=== PATIENT | female | born 1990 | race Caucasian/White ===

== ENCOUNTER 2018-04-09 03:16 | Emergency (ER) | payer SELFPAY ==
--- NOTE | 2018-04-09 03:20 | EDM.PDOC ---
ED HPI GENERAL MEDICAL PROBLEM - General Stated Complaint: ABDOMINAL PAIN Time Seen by Provider: 04/09/18 03:31 - History of Present Illness INITIAL COMMENTS - FREE TEXT/NARRATIVE: HISTORY AND PHYSICAL: History of present illness: The patient is a 27-year-old female with a history of chronic lower back pain and back surgery, bilateral tubal ligation and a right ovariectomy who presents with complaints of concerns about having a gallbladder attack this morning. The patient was seen by me on March 05 and had a workup consisting of labs including H. pylori and a CT scan of the abdomen and pelvis. Her CT showed colonic retention as well as cholelithiasis with mild gallbladder wall thickening. She was referred to our surgery clinic and seen by Dr. Jain who did an outpatient ultrasound also revealing cholelithiasis but no other gallbladder abnormalities. The patient was scheduled for surgery to remove the gallbladder on April 02 she tells me that she could not make that appointment and has to reschedule that. She presents this morning with complaints of right upper quadrant pain that radiates to her chest. She says this feels somewhat different than her prior gallbladder attack and she says that she has not had much pain at all since she was seen here the beginning of February. She has tramadol to use for pain and she did take a dose of that when the pain started at 2 AM but is not totally relieves the pain. The patient says that yesterday she had a normal day with no systemic complaints such as fever chills chest pain shortness of breath abdominal pain vomiting or diarrhea she's been having normal bowel movements. She says she has been very good about watching her diet but at 9 PM last evening she did have doubled legs made with miracle whip as well as food with heavy cream. Her pain started at 2 AM and it is not associated with nausea or vomiting. She is not short of breath and she has not had a fever. What she tells me her surgery was scheduled and had a few postponed because her boyfriend was involved in an accident and it is now currently scheduled for later this month. Review of systems: As per history of present illness and below otherwise all systems reviewed and negative. Past medical history: As per history of present illness and as reviewed below otherwise noncontributory. Surgical history: As per history of present illness and as reviewed below otherwise noncontributory. Social history: No reported history of drug or alcohol abuse. Family history: As per history of present illness and as reviewed below otherwise noncontributory. Physical exam: General: Well-developed well-nourished female who is nontoxic and vital signs are noted by me. Patient is rubbing her right upper quadrant on my evaluation but she is cooperative and moves easily in the bed. HEENT: Atraumatic, normocephalic, , negative for conjunctival pallor or scleral icterus, mucous membranes moist, throat clear, neck supple, nontender, trachea midline. Lungs: Clear to auscultation, breath sounds equal bilaterally, chest nontender. Heart: S1S2, regular rate and rhythm no overt murmurs Abdomen: Soft, nondistended, there is mild tenderness on palpation in the right upper quadrant without rebound or guarding and bowel sounds are normoactive Negative for masses or hepatosplenomegaly. Pelvis: Stable nontender. Genitourinary: Deferred. Rectal: Deferred. Extremities: Atraumatic full range of motion without defects or deficits Neurovascular unremarkable. Neuro: Awake, alert, oriented. Cranial nerves II through XII unremarkable. Cerebellum unremarkable. Motor and sensory unremarkable throughout. Exam nonfocal. Diagnostics: CBC CMP amylase lipase UA urine culture Therapeutics: IV fluids Toradol I offered the patient Zofran but she says she is not nauseated and I did offer her something stronger for pain but she does not have a ride and needs to drive herself home. Vision says she is feeling better and all lab tests have been discussed with her. Encouraged her to try to be better about watching her diet and push hydration. She says she has tramadol at home to use for any further pain and she is aware that I will inform Dr. Jain of her ER visit at 6:30 this morning and will not wake her currently. She is comfortable with that. I did stress the need to call the office and get her same-day surgery rescheduled. She states understanding Impression: Biliary colic acute on chronic with history of cholelithiasis; early UTI Definitive disposition and diagnosis as appropriate pending reevaluation and review of above. Right Upper Abdominal Pain Score (Numeric/FACES): 8 - Related Data Allergies Allergy/AdvReac Type Severity Reaction Status Date / Time latex Allergy Swelling Verified 04/09/18 03:28 sardines Allergy Hives Uncoded 04/09/18 03:28 wasp stings Allergy Swelling Uncoded 04/09/18 03:28 Home Meds: Home Meds Multivitamin [Multivitamins] 1 tab PO DAILY 03/26/18 [History] traMADol HCl [Tramadol HCl] 1 tab PO ASDIRECTED PRN 03/26/18 [History] Past Medical History [employer] History: Reports: Polycystic Ovaries, Spontaneous - Past Surgical History Female Surgical History: Reports: Breast Implant, Oophorectomy, Tubal Ligation Neurological Surgical History: Reports: Discectomy Other Neurological Surgeries/Procedures: L5 on R side ED ROS GENERAL - Review of Systems Review Of Systems: ROS reveals no pertinent complaints other than HPI. ED EXAM, GENERAL - Physical Exam Exam: See Below (See dictation) Course - Vital Signs Last Recorded V/S: Last Vital Signs Temp 36.3 C 04/09/18 03:26 Pulse 70 04/09/18 03:26 Resp 20 04/09/18 03:26 BP 119/80 04/09/18 03:26 Pulse Ox 96 04/09/18 03:26 - Orders/Labs/Meds Orders: Active Orders 24 hr Category Date Time Status CULTURE URINE [RM] Stat Lab 04/09/18 04:49 Ordered Sodium Chloride 0.9% [Saline Flush] Med 04/09/18 03:36 Active 10 ml FLUSH ASDIRECTED PRN Sodium Chloride 0.9% [Saline Flush] Med 04/09/18 03:36 Active 2.5 ml FLUSH ASDIRECTED PRN Saline Lock Insert [OM.PC] Stat Oth 04/09/18 03:36 Ordered Medication Orders Sodium Chloride (Saline Flush) 10 ml FLUSH ASDIRECTED PRN PRN Reason: Keep Vein Open Sodium Chloride (Saline Flush) 2.5 ml FLUSH ASDIRECTED PRN PRN Reason: Keep Vein Open Labs: Laboratory Tests 04/09/18 04/09/18 04/09/18 Range/Units 03:40 03:40 04:20 WBC 8.91 (4.0-11.0) K/uL RBC 4.39 (4.30-5.90) M/uL Hgb 13.4 (12.0-16.0) g/dL Hct 38.3 (36.0-46.0) % MCV 87.2 (80.0-98.0) fL MCH 30.5 (27.0-32.0) pg MCHC 35.0 (31.0-37.0) g/dL RDW Std Deviation 39.6 (28.0-62.0) fl RDW Coeff of Issac 12 (11.0-15.0) % Plt Count 245 (150-400) K/uL MPV 8.50 (7.40-12.00) fL Add Manual Diff YES Neutrophils % (Manual) 49 (48.0-80.0) % Lymphocytes % (Manual) 40 (16.0-40.0) % Monocytes % (Manual) 8 (0.0-15.0) % Eosinophils % (Manual) 2 (0.0-7.0) % Basophils % (Manual) 1 (0.0-1.5) % Nucleated RBC % 0.0 /100WBC Absolute Seg Neuts 4.4 (1.4-5.7) Lymphocytes # (Manual) 3.6 H (0.6-2.4) Monocytes # (Manual) 0.7 (0.0-0.8) Eosinophils # (Manual) 0.2 (0.0-0.7) Basophils # (Manual) 0.1 (0.0-0.1) Nucleated RBCs # 0 K/uL Sodium 139 (136-145) mmol/L Potassium 3.4 L (3.5-5.1) mmol/L Chloride 105 (98-107) mmol/L Carbon Dioxide 21.6 (21.0-32.0) mmol/L BUN 19 H (7.0-18.0) mg/dL Creatinine 1.0 (0.6-1.0) mg/dL Est Cr Clr Drug Dosing 74.69 mL/min Estimated GFR (MDRD) > 60.0 ml/min Glucose 107 H (74-106) mg/dL Calcium 9.2 (8.5-10.1) mg/dL Total Bilirubin 0.3 (0.2-1.0) mg/dL AST 14 L (15-37) IU/L ALT 19 (14-63) IU/L Alkaline Phosphatase 67 (46-116) U/L Total Protein 7.4 (6.4-8.2) g/dL Albumin 3.5 (3.4-5.0) g/dL Globulin 3.9 (2.6-4.0) g/dL Albumin/Globulin Ratio 0.9 (0.9-1.6) Amylase 135 H (25-115) U/L Lipase 157 (73-393) U/L Urine Color YELLOW Urine Appearance SLT CLOUDY Urine pH 5.5 (5.0-8.0) Ur Specific [place] >= 1.030 (1.001-1.035) Urine Protein NEGATIVE (NEGATIVE) mg/dL Urine Glucose (UA) NEGATIVE (NEGATIVE) mg/dL Urine Ketones 15 H (NEGATIVE) mg/dL Urine Occult Blood MODERATE H (NEGATIVE) Urine Nitrite NEGATIVE (NEGATIVE) Urine Bilirubin NEGATIVE (NEGATIVE) Urine Urobilinogen 0.2 (<2.0) EU/dL Ur Leukocyte Esterase NEGATIVE (NEGATIVE) Urine RBC 0-3 (0-2/HPF) Urine WBC 0-2 (0-5/HPF) Ur Squamous Epith Cells MODERATE Urine Bacteria 2+ H (NEGATIVE) Urine Mucus LIGHT (NONE-MOD) Meds: Medications Generic Name Dose Route Start Last Admin Trade Name Freq PRN Reason Stop Dose Admin Sodium Chloride 10 ml 04/09/18 03:36 Saline Flush FLUSH ASDIRECTED PRN Keep Vein Open Sodium Chloride 2.5 ml 04/09/18 03:36 Saline Flush FLUSH ASDIRECTED PRN Keep Vein Open Discontinued Medications Generic Name Dose Route Start Last Admin Trade Name Freq PRN Reason Stop Dose Admin Sodium Chloride 1,000 mls @ 999 mls/hr 04/09/18 03:36 04/09/18 03:45 Normal Saline IV 04/09/18 04:36 999 mls/hr STAT ONE Administration Ketorolac Tromethamine 30 mg 04/09/18 03:36 04/09/18 03:46 Toradol IVPUSH 04/09/18 03:37 30 mg ONETIME ONE Administration Departure - Departure Time of Disposition: 04:49 Disposition: Home, Self-Care 01 Condition: Good Clinical Impression: Biliary colic UTI (urinary tract infection) Qualifiers: Urinary tract infection type: site unspecified Hematuria presence: without hematuria Qualified Code(s): N39.0 - Urinary tract infection, site not specified - Discharge Information Referrals: PCP,None [Primary Care Provider] - Additional Instructions: The following information is given to patients seen in the emergency department who are being discharged to home. This information is to outline your options for follow-up care. We provide all patients seen in our emergency department with a follow-up referral. The need for follow-up, as well as the timing and circumstances, are variable depending upon the specifics of your emergency department visit. If you don't have a primary care physician on staff, we will provide you with a referral. We always advise you to contact your personal physician following an emergency department visit to inform them of the circumstance of the visit and for follow-up with them and/or the need for any referrals to a consulting specialist. The emergency department will also refer you to a specialist when appropriate. This referral assures that you have the opportunity for followup care with a specialist. All of these measure are taken in an effort to provide you with optimal care, which includes your followup. Under all circumstances we always encourage you to contact your private physician who remains a resource for coordinating your care. When calling for followup care, please make the office aware that this follow-up is from your recent emergency room visit. If for any reason you are refused follow-up, please contact the [facility] emergency department at and ask to speak to the emergency department charge nurse. [facility] [address] [place] [id number] Please eat a low-fat diet and push hydration avoiding caffeinated products. Use the tramadol you have and/or [id number] Tylenol/ibuprofen for any pain. Take the antibiotics you have been prescribed, Cipro, until they are finished Please contact the clinic and schedule follow-up for your same day surgery as we discussed. Return to ER as needed and as discussed - My Orders Last 24 Hours: My Active Orders 04/09/18 03:36 Sodium Chloride 0.9% [Saline Flush] 10 ml FLUSH ASDIRECTED PRN Sodium Chloride 0.9% [Saline Flush] 2.5 ml FLUSH ASDIRECTED PRN Saline Lock Insert [OM.PC] Stat 04/09/18 04:49 CULTURE URINE [RM] Stat - Assessment/Plan Last 24 Hours: My Active Orders 04/09/18 03:36 Sodium Chloride 0.9% [Saline Flush] 10 ml FLUSH ASDIRECTED PRN Sodium Chloride 0.9% [Saline Flush] 2.5 ml FLUSH ASDIRECTED PRN Saline Lock Insert [OM.PC] Stat 04/09/18 04:49 CULTURE URINE [RM] Stat
[2018-04-09] MEDS ORDERED: Ketorolac 30 MG/ML SDV IVPUSH ONE (03:36)
[2018-04-09] MEDS ORDERED: Sodium Chloride 0.9% 2.5 ML Syringe FLUSH PRN (03:36)
[2018-04-09] MEDS ORDERED: Sodium Chloride 0.9% 10 ML Syringe FLUSH PRN (03:36)
[2018-04-09] MEDS ORDERED: Sodium Chloride 0.9% 1,000 ML IV ONE (03:36)
[2018-04-09 04:14] LABS: CHLORIDE,CL 105 mmol/L (98-107); SODIUM,NA 139 mmol/L (136-145)
== END 2018-04-09 05:00 | disposition home or self-care (01) ==
LOC: MW.ED 03:16
DX: K80.50 Calculus of bile duct without cholangitis or cholecystitis without obstruction (principal); N39.0 Urinary tract infection, site not specified; Z91.040 Latex allergy status; Z88.8 Allergy status to other drugs, medicaments and biological substances; Z98.51 Tubal ligation status
CPT/HCPCS: 36415; 80053; 81001; 82150; 83690; 85025; 87086; 96361; 96374; 99284; J1885; J7040